=== PATIENT | male | born 1970 | race Caucasian/White ===

== ENCOUNTER 2020-08-05 17:03 | Emergency (ER) | payer OTHER ==
[2020-08-05 17:16] VITALS: BP 133/77; PULSE 99; RESP 20; TEMP 98.1
[2020-08-05] MEDS ORDERED: LIDOCAINE 1% INJ 10MG/ML (20 ML MDV) SQ ONE (17:30)
--- NOTE | 2020-08-05 17:58 | XR ---
EXAMINATION TYPE: XR finger RT DATE OF EXAM: 08/05/2020 COMPARISON: NONE HISTORY: Laceration injury with pain. TECHNIQUE: 3 views right second finger. FINDINGS: No acute fracture or dislocation. Joint spaces are maintained. Soft tissue shows no suspici ous radiodense foreign body. Linear lucency consistent with laceration injury along the palmar radial distal aspect of the second proximal phalanx is noted. IMPRESSION: As above.
--- NOTE | 2020-08-05 18:34 | ED ---
General Adult HPI - General Chief complaint: Wound/Laceration Stated complaint: Finger Lac Time Seen by Provider: 08/05/20 17:15 Source: patient, RN notes reviewed Mode of arrival: ambulatory Limitations: no limitations - History of Present Illness Initial comments: 50-year-old male presents to the emergency room for a chief complaint of finger laceration. Patient was loading metal when he accidentally cut his right index finger. Patient reports that he is up-to-date on tetanus in the past 3-4 years. He denies any difficulty bending or moving the finger. Denies any loss of sensation. Denies any other injuries.Patient has no other complaints at this time including shortness of breath, chest pain, abdominal pain, nausea or vomiting, headache, or visual changes. - Related Data Allergies Allergy/AdvReac Type Severity Reaction Status Date / Time No Known Allergies Allergy Verified 08/05/20 17:08 Review of Systems ROS Statement: Those systems with pertinent positive or pertinent negative responses have been documented in the HPI. ROS Other: All systems not noted in ROS Statement are negative. Past Medical History Past Medical History: No Reported History History of Any Multi-Drug Resistant Organisms: None Reported Past Surgical History: Ear Surgery Past Psychological History: Bipolar Smoking Status: Current every day smoker Past Alcohol Use History: None Reported Past Drug Use History: Marijuana General Exam Limitations: no limitations General appearance: alert, in no apparent distress Head exam: Present: atraumatic, normocephalic, normal inspection Eye exam: Present: normal appearance, PERRL, EOMI. Absent: scleral icterus, conjunctival injection, periorbital swelling ENT exam: Present: normal exam, mucous membranes moist Neck exam: Present: normal inspection, full ROM. Absent: tenderness, meningismus, lymphadenopathy Respiratory exam: Present: normal lung sounds bilaterally. Absent: respiratory distress, wheezes, rales, rhonchi, stridor Cardiovascular Exam: Present: regular rate, normal rhythm, normal heart sounds. Absent: systolic murmur, diastolic murmur, rubs, gallop, clicks Extremities exam: Present: full ROM (Full range of motion of the right second digit including the MCP, PIP, and DIP joints.), normal capillary refill (Capillary refill less than 2 seconds in all digits of the right hand including the right second digit, radial pulses 2+.), other (Patient has laceration involving the radial aspect of the right second digit PIP joint, appears superficial, no deep structure injury.) Course Vital Signs 08/05/20 17:06 Temperature 98.1 F Pulse Rate 99 Respiratory 20 Rate Blood Pressure 133/77 Procedures - Laceration Laceration #1 Consent Obtained: verbal consent Indication: laceration Site: upper extremity Size (cm): 2 Description: linear Depth: simple, single layer Anesthetic Used: lidocaine 1% Anesthesia Technique: local infiltration Amount (mls): 2 Pre-repair: wound explored, irrigated extensively (with saline pressure irrigation), deep structures intact Type of Sutures: nylon Size of Sutures: 5-0 Number of Sutures: 3 Technique: simple, interrupted Patient Tolerated Procedure: well, no complications Medical Decision Making - Medical Decision Making X-ray of the right finger showed no radiodense foreign bodies. No acute fracture or dislocation. The wound was cleaned with saline pressure irrigation and margins were approximated with 3 simple opted sutures. I discussed care instructions as well as return parameters including those for infection. Discussed follow-up with his doctor and returning in 10 days for suture removal. Disposition Clinical Impression: Laceration Disposition: HOME SELF-CARE Condition: Good Instructions (If sedation given, give patient instructions): Care For Your Stitches (ED), Laceration (ED) Additional Instructions: Please wash twice daily with mild soap and water. Monitor for any signs of infection such as spreading or streaking redness, drainage, or fever and return if these occur. Return if you have any other worsening symptoms. Otherwise return to the emergency room in 10 days for suture removal. Follow-up with your doctor otherwise for a recheck Is patient prescribed a controlled substance at d/c from ED?: No Referrals: Harjinder Roche [STAFF PHYSICIAN] - 1-2 days Time of Disposition: 18:32
== END 2020-08-05 18:54 | disposition home or self-care (01) ==
LOC: EC 17:03
DX: S61.210A Laceration without foreign body of right index finger without damage to nail, initial encounter (principal); F17.200 Nicotine dependence, unspecified, uncomplicated; W45.8XXA Other foreign body or object entering through skin, initial encounter; Y93.89 Activity, other specified; Y92.009 Unspecified place in unspecified non-institutional (private) residence as the place of occurrence of the external cause
CPT/HCPCS: 73140; 99283; 12001; J2001